=== PATIENT | male | born 1950 | race Caucasian/White ===

== ENCOUNTER 2021-02-10 15:42 | Outpatient (CLI) | payer MEDICARE, OTHER ==
--- NOTE | 2021-02-11 08:16 | Ultrasound Report ---
PROCEDURE: Carotid Doppler Complete INDICATIONS: CAROID BRUIT TECHNIQUE: Color and pulse Doppler interrogation was performed of both carotid systems, with image documentation and velocity measurements. COMPARISON: None. FINDINGS: Right side: Brachial blood pressure: 134/73 mm Hg. Common carotid artery peak systolic velocity: 60 cm/sec. Internal carotid artery peak systolic velocity: 106 cm/sec. Internal carotid artery end diastolic velocity: 27 cm/sec. External carotid artery peak systolic velocity: 53 cm/sec. ICA/CCA peak systolic ratio: 1.8 . Grady scale imaging description: Minimal atheromatous plaque with tortuosity. Percent internal carotid artery stenosis: Less than 50% . Vertebral artery: Flow direction is antegrade. Left side: Brachial blood pressure: 122/71 mm Hg. Common carotid artery peak systolic velocity: 63 cm/sec. Internal carotid artery peak systolic velocity: 65 cm/sec. Internal carotid artery end diastolic velocity: 22 cm/sec. External carotid artery peak systolic velocity: 62 cm/sec. ICA/CCA peak systolic ratio: 1.0 . Grady scale imaging description: Minimal atheromatous plaque with tortuosity. Percent internal carotid artery stenosis: Less than 50% . Vertebral artery: Flow direction is antegrade. IMPRESSION: No significant abnormality. The estimate of stenosis included in the report of the imaging study was calculated using the NASCET method Reviewed by: Ricardo Montenegro MD on 02/11/2021 8:15 AM PDT Approved by: Ricardo Montenegro MD on 02/11/2021 8:15 AM PDT Station ID: [id number]
== END 2021-02-10 15:43 | disposition home or self-care (01) ==
LOC: DI 15:42
PROVIDERS: ATTEND Nurse Practitioner Family
DX: R09.89 Other specified symptoms and signs involving the circulatory and respiratory systems (principal)
CPT/HCPCS: 93880

== ENCOUNTER 2022-12-14 08:00 | Outpatient (CLI) | payer MEDICARE, OTHER ==
--- NOTE | 2022-12-14 16:50 | XRAY Report ---
PROCEDURE: Femur 2V RT INDICATIONS: RIGHT THIGH PAIN TECHNIQUE: 2 . views of the femur were acquired. COMPARISON: None. FINDINGS: Bones: No fractures or dislocations. No suspicious bony lesions. Moderate knee and right hip dege nerative change Soft tissues: No suspicious soft tissue calcifications or masses. IMPRESSION: No visualized acute fracture or dislocation. However, occult injury cannot be excluded. Recommend kellie rt interval imaging follow-up in 7-10 days as clinically indicated for additional evaluation.. Reviewed by: Cassidy Wallis MD on 12/14/2022 4:49 PM PDT Approved by: Cassidy Wallis MD on 12/14/2022 4:49 PM PDT Station ID: [id number]
== END 2022-12-14 23:59 | disposition home or self-care (01) ==
LOC: DI.S 08:00
PROVIDERS: ATTEND Physician Assistant
DX: M79.651 Pain in right thigh (principal)

== ENCOUNTER 2022-12-18 09:49 | Emergency (ER) | payer MEDICARE, OTHER ==
--- OUTSIDE RECORDS SUMMARY | 2022-12-18 10:15 | EXTERNAL MEDICAL SUMMARY RPT | Continuity of Care Document ---
Author Name Unknown Address [address] [place] [address] Phone Organization [facility] Address [address] [place] [address] Phone Care Team Providers Care High Pressure Operator Name Role Phone Unavailable Unavailable Unavailable Zafar Gonsales, Robert Unavailable Unavailable [place] Patient Registrar Iii, Erica Unavailab le Unavailable Medications date description facility 2022-12-14 00:00 chlorthalidone [facility] 2022-12-15 00:00 chlorthalidone [facility] 2022-12-14 00:00 chlorthalidone [facility] 2022-12-15 00:00 chlorthalidone [facility] 2022-12-14 00:00 trazodone [facility] 2022-12-15 00:00 trazodone [facility] 2022-12-14 00:00 zolpidem [facility] 2022-12-15 00:00 zolpidem [facility] 2022-12-14 00:00 chlorthalidone [facility] 2022-12-15 00:00 chlorthalidone [facility] 2022-12-14 00:00 rosuvastatin [facility] 2022-12-15 00:00 rosuvastatin [facility] 2022-12-14 00:00 chlorthalidone [facility] 2022-12-15 00:00 chlorthalidone [facility] 2022-12-14 00:00 trazodone [facility] 2022-12-15 00:00 trazodone [facility] 2022-12-14 00:00 zolpidem [facility] 2022-12-15 00:00 zolpidem [facility] 2022-12-14 00:00 trazodone [facility] 2022-12-15 00:00 trazodone [facility] 2022-12-14 00:00 zolpidem [facility] 2022-12-15 00:00 zolpidem [facility] 2022-12-14 00:00 rosuvastatin [facility] 2022-12-15 00:00 rosuvastatin [facility] 2022-12-14 00:00 rosuvastatin [facility] 2022-12-15 00:00 rosuvastatin [facility] 2022-12-14 00:00 zolpidem [facility] 2022-12-15 00:00 zolpidem [facility] 2022-12-14 00:00 trazodone [facility] 2022-12-15 00:00 trazodone [facility] 2022-12-14 00:00 rosuvastatin [facility] 2022-12-15 00:00 rosuvastatin [facility] Problems date description facility 2022-12-14 00:00 No current problems or disability - unknown [facility] 2022-12-14 00:00 Pain in limb [facility] 2022-12-14 00:00 Thigh pain [facility] 2022-12-14 00:00 Pain in right thigh [facility] Procedures date description facility 2022-12-14 00:00 Visit Code Hold [facility] 2022-12-14 00:00 XR FEMUR 2 VIEWS [facility] Social History date description facility 2022-12-14 00:00 Never smoker [facility] 2022-12-14 00:00 Unknown if ever smoked [facility] Vital Signs date measurement value units 2022-12-14 00:00 BMI 21.14 kg/m2 2022-12-14 00:00 BP_diastolic 79 mmHg 2022-12-14 00:00 BP_systolic 151 mmHg 2022-12-14 00:00 heart_rate 59 /min 2022-12-14 00:00 height_metric 177.8 cm 2022-12-14 00:00 height_standard 70 in 2022-12-14 00:00 respiration_rate 17 /min 2022-12-14 00:00 temperature_metric 36.17 C 2022-12-14 00:00 temperature_standard 97.1 F 2022-12-14 00:00 weight_metric 66.59 kg 2022-12-14 00:00 weight_standard 146.8 lb
[2022-12-18] MEDS ORDERED: DEXAMETHASONE 10 MG/ML VIAL IM STA (11:28)
--- NOTE | 2022-12-18 11:30 | ED Physician Documentation ---
History of Present Illness - Stated complaint Stated Complaint: RT LEG PX - Chief complaint Chief Complaint: Ext Problem - History obtained from History obtained from: Patient - Additonal information Additional information: Patient comes to the emergency department chief complaint of pain in right buttock shooting down through his entire leg, worse at night. Patient denies distinct injury. He states that he has not been able to take anything for it at home because he is preparing for bladder surgery and cannot take any NSAIDs or anything else that we will cause him to potentially bleed more. The patient is not known to have any low back problems, though he states "he might". No loss of bowel or bladder control that is new. No other complaints at this time. PD PAST MEDICAL HISTORY - Past Medical History Past Medical History: Yes Cardiovascular: Hypertension - Past Surgical History Past Surgical History: No - Present Medications Home Medications: Ambulatory Orders Medication Instructions Recorded Confirmed Chlorthalidone 25 mg PO DAILY 12/18/22 12/18/22 Cyclobenzaprine [Flexeril] 10 mg PO TID PRN #20 tablet 12/18/22 Gabapentin [Neurontin] 300 mg PO TID #21 cap 12/18/22 HYDROcod/ACETAM 5/325 [Ericson 5/325] 1 - 2 tablet PO Q6H PRN #14 tablet 12/18/22 Rosuvastatin Calcium [Crestor] 10 mg PO DAILY 12/18/22 12/18/22 predniSONE [Deltasone] 10 mg PO [id number] #42 tab 12/18/22 traZODone [Desyrel] 50 mg PO ONCE 12/18/22 12/18/22 - Allergies Allergies/Adverse Reactions: Allergies Allergy/AdvReac Type Severity Reaction Status Date / Time No Known Drug Allergies Allergy Verified 12/18/22 09:57 - Social History Does the pt smoke?: No Smoking Status: Never smoker PD ED PE NORMAL - Vitals Vital signs reviewed: Yes - General General: Alert and oriented X 3, No acute distress, Well developed/nourished - HEENT HEENT: Atraumatic, PERRL, EOMI, Moist mucous membranes - Neck Neck: Supple, no meningeal sign - Respiratory Respiratory: No respiratory distress - Derm Derm: Normal color, Warm and dry, No rash - Extremities Extremities: No deformity, Normal ROM s pain, Other (Tenderness over right SI joint.) - Neuro Neuro: Alert and oriented X 3 - Psych Psych: Normal mood, Normal affect Results - Vitals Vitals: Vital Signs - 24 hr 12/18/22 12/18/22 09:54 11:44 Temperature 37.1 C Heart Rate 92 65 Respiratory 20 16 Rate Blood Pressure 145/97 H 141/78 H O2 Saturation 100 98 Oxygen O2 Source Room air PD Medical Decision Making - ED course Complexity details: considered differential, d/w patient, d/w family ED course: The patient was treated symptomatically in the emergency department. He was hoping for an MRI here but I explained to him that this was not indicated emergently. X-rays are unlikely to be all that helpful, so we have discussed following up with his primary doctor to get an MRI scheduled. We have discussed symptomatic management at home and the usual indications for return. Departure - Departure Disposition: , Self Care Clinical Impression: Sciatica Qualifiers: Laterality: right Qualified Code(s): M54.31 - Sciatica, right side Condition: Stable Instructions: ED Sciatica Prescriptions: predniSONE [Deltasone] 10 mg PO [id number] #42 tab Cyclobenzaprine [Flexeril] 10 mg PO TID PRN #20 tablet PRN Reason: Spasms Gabapentin [Neurontin] 300 mg PO TID #21 cap HYDROcod/ACETAM 5/325 [Ericson 5/325] 1 - 2 tablet PO Q6H PRN #14 tablet PRN Reason: Pain Comments: Your symptoms are consistent with sciatica, a nerve pain that can be caused by compression of 1 or more of the nerves of the sciatic bundle, either at the low back itself or coming through the pelvis. Sometimes this discusses a dull ache but other times, it can cause a searing, nerve pain. Often, flareups of sciatica will blow over on their own, but sometimes there is an underlying condition of the spine that is causing the sciatica and this can cause ongoing symptoms. As such, it is a good idea for you to follow-up with your primary doctor to discuss outpatient MRI to further evaluate the symptoms. You have been treated with your first dose of steroids here in the emergency department today. Prescriptions for your medications for symptom control have been el ectronically transmitted to the [facility] in [place]. You should continue your plans for your bladder surgery otherwise. Forms: PCP List Discharge Date/Time: 12/18/22 11:45
[2022-12-18 11:45] VITALS: BP 141/78; O2SAT 98
== END 2022-12-18 11:45 | disposition home or self-care (01) ==
LOC: ED 09:49
DX: M54.31 Sciatica, right side (principal)
CPT/HCPCS: 96372; 99283

== ENCOUNTER 2023-01-08 08:50 | Outpatient (CLI) | payer MEDICARE, OTHER ==
--- NOTE | 2023-01-08 15:35 | XRAY Report ---
PROCEDURE: Lumbar Spine 2 View INDICATIONS: LOW BACK PX TECHNIQUE: 3 views of the lumbar spine were acquired. COMPARISON: None. FINDINGS: Bones: 5 [id number] vertebrae are present. There is mild to moderate levoscoliosis of lumbar sp ine with apex at L3 level and Modi angle measures 17.9 degrees. 5 mm retrolisthesis of L1 on L2 and L 2 on L3 is seen. 6 mm retrolisthesis of L3 on L4 is also noted. Degenerative endplate changes and raegan ateral facet arthrosis throughout lumbar spine is seen. No vertebral body compression fractures. No suspicious bony lesions. Soft tissues: Overlying bowel gas pattern is normal. No suspicious soft tissue calcifications. IMPRESSION: Scoliosis as above. Grade 1 retrolisthesis at L1-2 through L3-4 levels as above. No acut e compression fracture. Degenerative disc disease throughout lumbar spine. Reviewed by: Jorge Painter MD on 01/08/2023 3:34 PM PDT Approved by: Jorge Painter MD on 01/08/2023 3:34 PM PDT Station ID: [id number]
--- NOTE | 2023-01-08 15:37 | XRAY Report ---
PROCEDURE: Sacrum/Coccyx INDICATIONS: LOW BACK PAIN TECHNIQUE: 3 views of the sacrum and coccyx acquired. COMPARISON: None FINDINGS: Bones: No acute sacral or coccygeal fracture is seen. Bilateral sacral iliac joint osteophytic change s are seen. No gross bony erosion or ankylosis. Bilateral hip joint osteophytic changes also noted. N o evidence of avascular necrosis of femoral head. No suspicious bony lesions. Soft tissues: Visualized bowel gas pattern is normal. No suspicious soft tissue densities. IMPRESSION: 1. No sacral or coccygeal fracture. 2. 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 Reviewed by: Jorge Painter MD on 01/08/2023 3:35 PM PDT Approved by: Jorge Painter MD on 01/08/2023 3:35 PM PDT Station ID: [id number]
== END 2023-01-08 08:51 | disposition home or self-care (01) ==
LOC: DI 08:50
PROVIDERS: ATTEND Physician Assistant
DX: M47.898 Other spondylosis, sacral and sacrococcygeal region (principal); M16.0 Bilateral primary osteoarthritis of hip; M43.16 Spondylolisthesis, lumbar region; M51.36 Other intervertebral disc degeneration, lumbar region